=== PATIENT | male | born 1955 | race African-American/Black ===

== ENCOUNTER → 2018-12-09 | Outpatient (CLI) | payer OTHER ==
--- NOTE | 2018-12-09 13:53 | KCIC ---
MRI of the lumbar spine without contrast 12/09/2018 CLINICAL HISTORY: Chronic mid and low back pain with decreased mobility. TECHNIQUE: Unenhanced T1-weighted and T2-weighted sagittal and axial and inversion recovery sagittal images of the lumbar spine were obtained. FINDINGS: Minimal S-shaped curvature of the thoracolumbar spine is seen. Degenerative signal changes are seen involving the L2-3, L3-4, L4-5 and L5-S1 discs. Degenerative signal changes are seen within the marrow surrounding these discs. Loss of height of L3-4 and L5-S1 discs is noted. The conus medullaris is normal morphology, position, and signal characteristics. The L1-2 disc space is within normal limits. At the L2-3 disc space there is a mild to moderate generalized disc bulge. This is eccentric to the left. Superimposed on the disc bulge is a right paracentral focal disc protrusion. This measures 3 mm in AP diameter. Degenerative changes are seen involving the facet joints bilaterally. There is moderate ligamentum flavum hypertrophy bilaterally. There is prominence of the posterior epidural fat. These findings when combined result in mild right greater than left central spinal canal stenosis. Mild right neural foraminal stenosis is seen. The left neural foramen is patent. At the L3-4 disc space there is a mild to moderate generalized disc bulge. This is eccentric to the left. Degenerative changes are seen involving the facet joints. There is mild to moderate ligamentum flavum hypertrophy. These findings do not result in significant central spinal canal stenosis. Mild left neural foraminal stenosis is seen. The right neural foramen is patent. At the L4-5 disc space there is a mild generalized disc bulge. Superimposed on this disc bulge is a right lateral focal disc protrusion. This measures 3 mm in AP diameter. Degenerative changes are seen involving the facet joints bilaterally. There is mild ligamentum flavum hypertrophy bilaterally. There are small facet joint effusions. These findings do not result in significant central spinal canal stenosis. Mild right neural foraminal stenosis is seen. The left neural foramen is patent. At the L5-S1 disc space there is a mild generalized disc bulge. Degenerative changes are seen involving the facet joints bilaterally. There is mild ligamentum flavum hypertrophy bilaterally. These findings when combined do not result in significant central spinal canal or neural foraminal stenosis. IMPRESSION: The changes of degenerative disc disease are seen throughout the lumbar spine. These findings result in mild right greater than left central spinal canal stenosis at L2-3. Mild right neural foraminal stenosis is seen at L2-3 and L4-5. Mild left neural foraminal stenosis is seen at L3-4. Electronically signed by: Frederic Fernando MD (12/09/2018 1:50 PM) [email or web address]
--- NOTE | 2018-12-09 14:05 | KCIC ---
MRI of the thoracic spine without contrast 12/09/2018 CLINICAL HISTORY: Mid back pain with loss of mobility. TECHNIQUE: Unenhanced T1-weighted, T2-weighted and inversion recovery sagittal and T1-weighted and T2-weighted axial images of the thoracic spine were obtained. T2-weighted sagittal images of the cervical, thoracic and lumbar spine were obtained for localization purposes. FINDINGS: Very mild S-shaped curvature of the thoracolumbar spine is seen. Degenerative signal changes are seen involving all of the disks of the thoracic spine. Degenerative signal changes are seen within the marrow surrounding these discs. No area of abnormal signal intensity is seen involving the thoracic spinal cord. A 1.6 cm rounded high signal intensity lesion is seen involving the midpole of the right kidney on the T2-weighted images. This likely represents a cyst. 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 Degenerative changes are seen throughout the thoracic disc spaces on the axial images consisting of minimal to mild generalized disc bulges, small superimposed focal disc protrusions and degenerative changes involving the facet joints. These findings do not result in areas of significant central spinal canal or neural foraminal stenosis at any level. IMPRESSION: Degenerative changes are seen involving the thoracic spine as outlined above. These findings do not result in significant central spinal canal or neural foraminal stenosis. Electronically signed by: Frederic Fernando MD (12/09/2018 2:02 PM) [email or web address]
== END | disposition home or self-care (01) ==
LOC: KCIC MRI 09:18
PROVIDERS: ATTEND Nurse Practitioner Acute Care
DX: M51.36 Other intervertebral disc degeneration, lumbar region (principal); M48.061 Spinal stenosis, lumbar region without neurogenic claudication; M47.815 Spondylosis without myelopathy or radiculopathy, thoracolumbar region; M89.38 Hypertrophy of bone, other site; M51.26 Other intervertebral disc displacement, lumbar region; G89.29 Other chronic pain
CPT/HCPCS: 72146; 72148